=== PATIENT | female | born 1995 | race African-American/Black ===

== ENCOUNTER 2019-01-17 12:25 | Emergency (ER) | payer MEDICAID ==
[~2019-01-17] VITALS: Ht 157.5 cm; Wt 68.9 kg
[2019-01-17 12:32] VITALS: Ht 157.5 cm; Wt 68.9 kg
[2019-01-17 13:25] LABS: CARBON DIOXIDE 27.8 mmol/L (21-32); CHLORIDE SERUM 106 mmol/L (98-107); CREATININE SERUM 0.8 mg/dL (0.6-1.0); GFR1 > 60 mL/min; GLUCOSE SERUM 102 mg/dL (74-106); POTASSIUM SERUM 4.2 mmol/L (3.5-5.1); SODIUM SERUM 142 mmol/L (136-145)
[2019-01-17 13:30] LABS: ALBUMIN 3.4 g/dL (3.4-5.0); ALKALINE PHOSPHATASE 56 U/L (46-116); ALT/SGPT 16 U/L (14-59); AMYLASE 38 U/L (25-115); AST/SGOT 14 U/L (15-37); BILIRUBIN TOTAL 0.26 mg/dL (0.20-1.00); LIPASE 79 IU/L (73-393); TOTAL PROTEIN, SERUM 7.4 g/dL (6.4-8.2)
[2019-01-17 13:51] LABS: BASOPHIL % 0.2 % (0-2); PLATELET COUNT 393 x10^3mcL (130-400); RED CELL DISTRIBUTION WIDTH 14.1 % (11.5-14.5)
[2019-01-17 16:04] VITALS: BP 108/65
== END 2019-01-17 16:04 | disposition home or self-care (01) ==
LOC: ED 12:25
PROVIDERS: Specialist
DX: G89.29 Other chronic pain (principal); R10.2 Pelvic and perineal pain
CPT/HCPCS: 87491; 87591; J1885; J2405; J3010; J7030

== ENCOUNTER 2019-03-04 21:00 | Emergency (ER) | payer MEDICAID ==
[~2019-03-04] VITALS: Ht 157.5 cm; Wt 67.3 kg
[2019-03-04 21:08] VITALS: Ht 157.5 cm; Wt 67.3 kg
[2019-03-04 23:09] VITALS: BP 123/70
== END 2019-03-04 23:09 | disposition home or self-care (01) ==
LOC: ED 21:00
DX: N76.0 Acute vaginitis (principal); A59.9 Trichomoniasis, unspecified; Z11.3 Encounter for screening for infections with a predominantly sexual mode of transmission
CPT/HCPCS: 87491; 87591; J0696

== ENCOUNTER 2019-03-23 17:58 | Emergency (ER) | payer MEDICAID ==
[~2019-03-23] VITALS: Ht 157.5 cm; Wt 64.4 kg
[2019-03-23 18:08] VITALS: Ht 157.5 cm; Wt 64.4 kg
[2019-03-23 21:21] VITALS: BP 104/73
== END 2019-03-23 21:21 | disposition home or self-care (01) ==
LOC: ED 17:58
DX: N89.8 Other specified noninflammatory disorders of vagina (principal); A59.01 Trichomonal vulvovaginitis; Z98.890 Other specified postprocedural states
CPT/HCPCS: 87491; 87591

== ENCOUNTER 2019-03-26 22:53 | Emergency (ER) | payer MEDICAID ==
[~2019-03-26] VITALS: Ht 160 cm; Wt 64.4 kg
[2019-03-26 23:10] VITALS: Ht 160 cm; Wt 64.4 kg
[2019-03-27 01:59] VITALS: BP 107/75
== END 2019-03-27 01:59 | disposition home or self-care (01) ==
LOC: ED 22:53
DX: B37.3 Candidiasis of vulva and vagina (principal); Z98.890 Other specified postprocedural states

== ENCOUNTER 2019-07-06 22:30 | Emergency (ER) | payer MEDICAID ==
[~2019-07-06] VITALS: Ht 157.5 cm; Wt 66.5 kg
[2019-07-06 22:37] VITALS: Ht 157.5 cm; Wt 66.5 kg
[2019-07-07 01:20] VITALS: BP 111/70
== END 2019-07-07 01:20 | disposition home or self-care (01) ==
LOC: ED 22:30
DX: N76.0 Acute vaginitis (principal); N83.209 Unspecified ovarian cyst, unspecified side
CPT/HCPCS: 87491; 87591

== ENCOUNTER 2019-10-16 21:35 | Emergency (ER) | payer OTHER, MEDICAID ==
[~2019-10-16] VITALS: Ht 160 cm; Wt 62.1 kg
[2019-10-16 21:41] VITALS: Ht 160 cm; Wt 62.1 kg
[2019-10-17] VITALS: BP 115/74
== END 2019-10-17 | disposition home or self-care (01) ==
LOC: ED 21:35
DX: S39.012A Strain of muscle, fascia and tendon of lower back, initial encounter (principal); Z98.86 Personal history of breast implant removal; V49.59XA Passenger injured in collision with other motor vehicles in traffic accident, initial encounter; Y93.89 Activity, other specified; Y92.89 Other specified places as the place of occurrence of the external cause; Y99.8 Other external cause status